=== PATIENT | female | born 1975 | race Caucasian/White ===

== ENCOUNTER → 2017-08-26 | Outpatient (CLI) | payer BC ==
[2017-08-26 07:49] LABS: ADD MAN DIFF? NO
[2017-08-26 08:21] LABS: ALBUMIN 3.7 g/dL (3.4-5.0); ALK PHOS 44 U/L (46-116); ALT (SGPT) 17 U/L (14-59); AST (SGOT) 23 U/L (15-37); C-REACTIVE PROTEIN 6.3 mg/L (0-3.3); CHOLESTEROL 129 mg/dL (0-200); CREATININE 0.7 mg/dL (0.6-1.0); DIRECT BILIRUBIN 0.1 mg/dL (0.0-0.2); GFR 90.9; GLUCOSE 98 mg/dL (70-99); HDLC 29 mg/dL (40-60); LDLC 88 mg/dL (0-100); NON-HDL CHOLESTEROL 100 mg/dL (0-129); TOTAL BILIRUBIN 0.4 mg/dL (0.2-1.0); TOTAL PROTEIN 7.5 g/dL (6.4-8.2); TRIGLYCERIDES 59 mg/dL (0-150); VLDLC 12 mg/dL (0-40)
[2017-08-26 08:28] LABS: BILIRUBIN,URINE NEGATIVE (NEG); CHOLESTEROL/HDL RATIO 4.4; CLARITY,URINE CLEAR; COLOR,URINE YELLOW; GLUCOSE,URINE NEGATIVE (NEG); NITRITE,URINE NEGATIVE (NEG); PROTEIN,URINE NEGATIVE (NEG-TRACE); UROBILINOGEN,URINE 0.2 mg/dL (0.2 mg/dL)
[2017-08-26 08:37] LABS: BASO % 0 % (0-3); EOS % 2 % (0-3); HEMATOCRIT 37.4 % (36.0-47.0); HEMOGLOBIN 12.9 g/dL (12.0-15.5); LYMPH # 1.4 x10^3/uL (1.0-4.8); LYMPH % 49 % (24-48); MEAN CORPUSCULAR HEMOGLOBIN 32 pg (25-35); MEAN CORPUSCULAR HGB CONC 35 g/dL (31-37); MEAN CORPUSCULAR VOLUME 93 fL (79-100); MONO # 0.2 x10^3/uL (0.0-1.1); MONO % 8 % (0-9); NEUT # 1.2 x10^3uL (1.8-7.7); NEUT % 41 % (31-73); PLATELET COUNT 219 x10^3/uL (140-400); RED BLOOD COUNT 4.01 x10^6/uL (3.50-5.40); RED CELL DISTRIBUTION WIDTH 12.3 % (11.5-14.5); WHITE BLOOD COUNT 2.9 x10^3/uL (4.0-11.0)
[2017-08-26 08:42] LABS: SQUAMOUS EPITHELIAL CELL,UR MOD /LPF
[2017-08-26 08:44] LABS: BACTERIA,URINE FEW /HPF (0-FEW); WBC,URINE OCC /HPF (0-4)
== END | disposition home or self-care (01) ==
LOC: LAB 06:55
DX: M75.40 Impingement syndrome of unspecified shoulder (principal); R79.89 Other specified abnormal findings of blood chemistry; Z82.49 Family history of ischemic heart disease and other diseases of the circulatory system
CPT/HCPCS: 36415; 80061; 80076; 81001; 82565; 82947; 85025; 86140